=== PATIENT | female | born 1945 | race Caucasian/White ===

== ENCOUNTER → 2022-09-09 | Outpatient (CLI) | payer MEDICARE ==
[~2022-09-09] MED LIST: KEFLEX500 MG PO
[2022-09-09 12:37] LABS: BASO # 0.1 10*3/uL (0.0-0.1); BASO % 1.3 % (0.0-1.0); EOS # 0.1 10*3/uL (0.0-0.4); EOS % 3.8 % (1.0-4.0); HEMATOCRIT 35.3 % (37.0-47.0); LYMPH % 27.4 % (27.0-41.0); MEAN CELL VOLUME 77.2 fl (81.0-99.0); MEAN CORPUSCULAR HGB 22.1 pg (27.0-31.0); MEAN CORPUSCULAR HGB CONC 28.6 g/dl (33.0-37.0); MEAN PLATELET VOLUME 10.2 fl (9.6-12.3); MONO # 0.3 10*3/uL (0.1-1.0); MONO % 9.1 % (3.0-9.0); NEUT # 2.2 10*3/uL (2.3-7.9); NEUT % 58.1 % (47.0-73.0); PLATELET COUNT AUTOMATED 365 10*3/uL (130-400); RED BLOOD COUNT 4.57 10*6/uL (4.10-5.10); RED CELL DISTRI WIDTH 19.4 % (0-14.5); RETICULOCYTE % 1.05 % (0.50-2.50); WHITE BLOOD COUNT 3.7 10*3/uL (4.8-10.8)
[2022-09-09 12:42] LABS: BILIRUBIN Negative (Negative); BLOOD Negative (Negative); CLARITY Cloudy (Clear); COLOR Yellow (Yellow); GLUCOSE Negative (Negative); KETONE Negative (Negative); LEUKO ESTERASE 1+ (Negative); NITRITE Negative (Negative); PH 5.5 (4.5-8.0); SPECIFIC GRAVITY 1.015 (1.001-1.030); UROBILINOGEN 0.2 E.U./dl (0.0-1.0)
[2022-09-09 12:56] LABS: BACTERIA 4+
[2022-09-09 13:05] LABS: POTASSIUM 4.9 mmol/L (3.4-5.1); T3 UPTAKE 20.9 % (22.4-36.7); THYROID STIM HORMONE (HS) 16.801 uIU/ml (0.550-4.780); THYROXINE (T4) TOTAL 5.1 ug/dl (4.5-10.9); TOTAL PROTEIN 7.8 gm/dL (6.0-8.0)
[2022-09-09 13:16] LABS: VITAMIN D, 25-HYDROXY 27.8 ng/mL (30-100)
[2022-09-10 13:06] LABS: ANTI-DSDNA ANTIBODIES <1 IU/mL (0-9)
== END | disposition home or self-care (01) ==
LOC: LAB 11:27
PROVIDERS: ATTEND Family Medicine
DX: R06.02 Shortness of breath (principal); R79.89 Other specified abnormal findings of blood chemistry; R53.83 Other fatigue; R74.8 Abnormal levels of other serum enzymes; E78.5 Hyperlipidemia, unspecified; E55.9 Vitamin D deficiency, unspecified

== ENCOUNTER → 2023-01-07 | Day surgery (SDC) | payer MEDICARE ==
[~2023-01-07] VITALS: Ht 154.9 cm; Wt 72.6 kg
[2023-01-07 10:05] VITALS: BP 150/88
[2023-01-07 11:10] VITALS: BP 144/84
[2023-01-07 11:25] VITALS: BP 149/82
[2023-01-07 11:40] VITALS: BP 154/84
== END | disposition home or self-care (01) ==
LOC: SDC 01-02 15:30
PROVIDERS: ATTEND Ophthalmology
DX: H25.12 Age-related nuclear cataract, left eye (principal); K44.9 Diaphragmatic hernia without obstruction or gangrene; Z90.89 Acquired absence of other organs; Z98.890 Other specified postprocedural states; Z88.0 Allergy status to penicillin

== ENCOUNTER → 2023-02-04 | Day surgery (SDC) | payer MEDICARE ==
[~2023-02-04] VITALS: Ht 152.4 cm; Wt 72.6 kg
[~2023-02-04] MED LIST changes: +OCUFLOX 0.3% 5 M5 ML OD
[2023-02-04 10:22] VITALS: BP 152/75
[2023-02-04 11:34] VITALS: BP 128/84
[2023-02-04 11:49] VITALS: BP 141/82
[2023-02-04 12:00] VITALS: BP 139/80
== END | disposition home or self-care (01) ==
LOC: SDC 02-02 08:45
PROVIDERS: ATTEND Ophthalmology
DX: H25.811 Combined forms of age-related cataract, right eye (principal); K44.9 Diaphragmatic hernia without obstruction or gangrene; Z87.891 Personal history of nicotine dependence; Z90.49 Acquired absence of other specified parts of digestive tract; Z90.89 Acquired absence of other organs; Z98.890 Other specified postprocedural states; Z88.0 Allergy status to penicillin